=== PATIENT | male | born 1970 | race Caucasian/White ===

== ENCOUNTER 2019-01-08 15:58 | Inpatient (IN) | payer BC ==
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
[2019-01-08 18:01] LABS: BASO % 0.4 % (0-2.0); EOS % 0.5 % (0-4.5); HEMATOCRIT 45.3 % (35.4-49); HEMOGLOBIN 15.1 GM/dL (11.7-16.9); LYMPH % 13.8 % (8-40); MCH 31.5 pg (25.7-33.7); MCHC 33.4 g/dl (32.0-35.9); MEAN CELL VOLUME 94.2 fl (80-96); MEAN PLT VOLUME 10.6 fl (7.5-11.1); MONO % 6.4 % (3.8-10.2); NEUT % 78.9 % (42.8-82.8); PLATELET COUNT 158 K/MM3 (134-434); RDW 14.5 % (11.9-15.9); WHITE BLOOD COUNT 9.3 K/mm3 (4.0-10.0)
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
--- NOTE | 2019-01-08 18:12 | PDOC ---
*Physical Exam - Vital Signs Last Vital Signs Temp Pulse Resp BP Pulse Ox 98.5 F 110 H 19 151/79 100 01/08/19 16:07 01/08/19 16:07 01/08/19 16:07 01/08/19 16:07 01/08/19 16:07 ED Treatment Course - LABORATORY CBC & Chemistry Diagram: 01/09/19 06:48 01/09/19 06:48 Medical Decision Making - Medical Decision Making 01/08/19 18:12 Pt seen by Midlevel Provider under my direct supervision Ancillary studies reviewed I agree with plan as outlined by Midlevel Provider *DC/Admit/Observation/Transfer Diagnosis at time of Disposition: Wounds, multiple, Burn - Discharge Dispostion Disposition: AGAINST MEDICAL ADVICE Condition at time of disposition: Good - Referrals - Patient Instructions - Post Discharge Activity
[2019-01-08 18:45] LABS: ALBUMIN 3.6 g/dl (3.4-5.0); BILIRUBIN,TOTAL 0.4 mg/dL (0.2-1); BLOOD UREA NITROGEN 32.6 mg/dL (7-18); CALCIUM 8.3 mg/dL (8.5-10.1); CREATININE 1.8 mg/dL (0.55-1.3); TOT PROT 7.5 g/dl (6.4-8.2)
[2019-01-08] MEDS ORDERED: INSULIN REGULAR HUMAN 100 UNITS/ML *VIAL SQ ONE (19:59)
[2019-01-08] MEDS ORDERED: SODIUM CHLORIDE 0.9% 500 ML INFUS.BAG IV ONE (19:59)
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
[2019-01-08] MEDS ORDERED: INSULIN REGULAR HUMAN 100 UNITS/ML *VIAL ONE (21:49)
[2019-01-09] MEDS: LACTATED RINGERS SOLUTION 1,000 ML/1,000 ML INFUS.BAG IV SCH ×2 (02:05→07:10)
[2019-01-09] MEDS: HEPARIN NA (PORCINE) 5,000 UNITS/ML 1ML VIAL SQ SCH ×3 (03:00→17:05)
[2019-01-09] MEDS ORDERED: HEPARIN NA (PORCINE) 5,000 UNITS/ML 1ML VIAL ONE ×2 (03:52→07:21)
[2019-01-09] MEDS: INSULIN SLIDING SCALE (NOVOLOG) 1 VIAL SQ SCH ×3 (06:29→16:32)
[2019-01-09] MEDS ORDERED: INSULIN (NOVOLOG) ASPART 100 UNITS/ML 10ML VIAL ONE (06:37)
[2019-01-09 08:08] LABS: HEMATOCRIT 38.9 % (35.4-49); HEMOGLOBIN 13.3 GM/dL (11.7-16.9); MCH 32.2 pg (25.7-33.7); MCHC 34.2 g/dl (32.0-35.9); MEAN PLT VOLUME 10.7 fl (7.5-11.1); PLATELET COUNT 119 K/MM3 (134-434); RBC 4.14 M/mm3 (4.00-5.60); WHITE BLOOD COUNT 6.3 K/mm3 (4.0-10.0)
[2019-01-09 08:16] LABS: CALCIUM 7.7 mg/dL (8.5-10.1); MAGNESIUM 2.1 mg/dL (1.8-2.4); PHOSPHOROUS 2.8 mg/dL (2.5-4.9); POTASSIUM 4.1 mmol/L (3.5-5.1)
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
--- NOTE | 2019-01-09 12:43 | EKG ---
Test Reason : Blood Pressure : / mmHG Vent. Rate : 056 BPM Atrial Rate : 056 BPM P-R Int : 164 ms QRS Dur : 080 ms QT Int : 428 ms P-R-T Axes : 070 -21 026 degrees QTc Int : 413 ms SINUS BRADYCARDIA EARLY REPOLARIZATION WHEN COMPARED WITH ECG OF 08-JAN-2019 22:00, NO SIGNIFICANT CHANGE WAS FOUND Confirmed by SHAQUILLE HARDIN MD ([id number]) on 01/09/2019 12:43:37 PM Referred By: VAHE MCCONNELL Confirmed By:SHAQUILLE HARDIN MD
[2019-01-09 15:30] VITALS: BP 147/92; PULSE 69; TEMP 98.1; BMI 26.9
--- NOTE | 2019-01-09 15:46 | PN ---
Progress Note (short form) - Note Progress Note: Vascular Surgery Pt seen and examined. Spoke to pt at bedside and explained to pt that his surgery cannot be done today due to existing cases in the OR Originally plastic surgery was called to see pt -- however they cannot see him today. Second opinion was called I was called. We booked the pt immediately on the OR schedule. However are too many emergencies today. We offered to do the debridement on saturday. These wounds have been present for over 5 weeks and are not a emergency. Pt wishes to go home - might even leave AMA Gave pt a appt for 9am on saturday in wound care clinic to have continuity of care in case pt leaves AMShay Rubin dO
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
--- NOTE | 2019-02-01 14:22 | EKG ---
Test Reason : Blood Pressure : / mmHG Vent. Rate : 072 BPM Atrial Rate : 072 BPM P-R Int : 162 ms QRS Dur : 084 ms QT Int : 398 ms P-R-T Axes : 078 000 036 degrees QTc Int : 435 ms NORMAL SINUS RHYTHM WITH SINUS ARRHYTHMIA POSSIBLE LEFT ATRIAL ENLARGEMENT BORDERLINE ECG NO PREVIOUS ECGS AVAILABLE Confirmed by MD Grover, Wilman ([id number]) on 02/01/2019 2:21:50 PM Referred By: Confirmed By:Wilman Ness MD
== END 2019-01-09 17:00 | disposition left against medical advice (07) | DRG 935 ==
LOC: JER 15:58 → JERBED 20:04 → J7W 01-09 14:19
PROVIDERS: ADMIT Internal Medicine
DX: T24.092A Burn of unspecified degree of multiple sites of left lower limb, except ankle and foot, initial encounter (principal); N17.9 Acute kidney failure, unspecified; E11.649 Type 2 diabetes mellitus with hypoglycemia without coma; E11.65 Type 2 diabetes mellitus with hyperglycemia; T24.091A Burn of unspecified degree of multiple sites of right lower limb, except ankle and foot, initial encounter; X08.8XXA Exposure to other specified smoke, fire and flames, initial encounter; Y92.89 Other specified places as the place of occurrence of the external cause
CPT/HCPCS: 36415; 80048; 80053; 82009; 82962; 83735; 84100; 85025; 85027; 86850; 86900; 86901; 93005; 93010; 99285-25; G0463-25; J1644